=== PATIENT | male | born 1945 | race Caucasian/White ===

== ENCOUNTER 2018-05-21 07:45 | Outpatient (CLI) | payer MEDICARE ==
--- NOTE | 2018-05-21 09:06 | ULT ---
ABDOMINAL AORTIC ULTRASOUND: Date: 05/21/18 HISTORY: Aortic aneurysm screening. FINDINGS: Real-time imaging of the abdominal aorta shows a normal caliber aorta. The proximal aorta measures 2. 0 cm, mid aorta 1.7 cm, and distal aorta 1.6 cm. The right and left iliac arteries are in the 1.1-1.2 cm range. IMPRESSION: No evidence of abdominal aortic aneurysm. POS: [id number]
== END 2018-05-21 07:46 | disposition home or self-care (01) ==
LOC: SCSULT 07:45
PROVIDERS: ATTEND Family Medicine
DX: Z13.6 Encounter for screening for cardiovascular disorders (principal)
CPT/HCPCS: 76706